=== PATIENT | male | born 1945 | race Caucasian/White ===

== ENCOUNTER 2025-08-24 06:53 | Day surgery (SDC) | payer MEDICARE, BC ==
[2025-08-23 10:39] LABS: MEAN PLATELET VOLUME 9.0 FL (7.4-10.4); RED CELL DISTRIBUTION WIDTH 14.8 % (11.5-14.5)
[2025-08-23 10:55] LABS: CREATININE 0.98 MG/DL (0.60-1.10); INR 1.3 INR; TOTAL CARBON DIOXIDE 31.7 MMOL/L (24-32); eGFR 73 ML/MIN
[2025-08-24] VITALS (8 sets, daily range): BP systolic 131–151; BP diastolic 62–80; PULSE 59–68; RESP 12–15; TEMP 97.8; O2SAT 98–100
[~2025-08-24] VITALS: Ht 170.2 cm; Wt 74.9 kg
[~2025-08-24 06:53] MED LIST: AMIO200T76 PO; APIX5TAB3 PO; ASPI-611 PO; ATOR10TA70 PO; FURO40TA4 PO; LISI1TAB51 PO; MELO-102 PO; METO25TA6 PO
[2025-08-24] MEDS ORDERED: MIDAZolam 1mg/ml 10ml vial IV ONE (07:15)
[2025-08-24] MEDS ORDERED: normal saline 1000ml 1,000 ML IV SCH (07:15)
[2025-08-24] MEDS ORDERED: morphine 10mg/ml inj. IV ONE (07:15)
[2025-08-24] MEDS ORDERED: amiodarone 150mg/dext, iso-os 100 ML IV ONE (07:15)
[2025-08-24] MEDS ORDERED: atropine 0.1mg/ml 10ml syringe IV ONE (07:15)
--- NOTE | 2025-08-24 07:17 | ELECTROCARDIOGRAPH REPORT ---
[facility] Test Date: 2025-08-24 Test Time: 07:15:08 Pat Name: WALLACE MEDLEY Department: [facility] Patient ID: [facility]-[id number] Room: Gender: M Field Marketing Team Leader: SAMANTHA : 1945 Requested By: SUSAN RAYMUNDO Order Number: [id number] Reading MD: Dr. MARYJANE Raymundo Measurements Intervals [place] Rate: 62 P: 0 [place]: 0 QRS: 98 QRSD: 100 T: 52 QT: 507 QTc: 515 Interpretive Statements Atrial fibrillation Right axis deviation Prolonged QT interval Electronically Signed On 08-24-2025 17:51:[address] MARYJANE Raymundo Please click the below link to view image of tracing.
[2025-08-24] MEDS ORDERED: midazolam 1 mg/ML 2ml injection ONE (09:04)
[2025-08-24] MEDS ORDERED: fentaNYL/PF 50MCG/1 ML 2ML syringe ONE (09:05)
[2025-08-24] MEDS ORDERED: atropine 0.1mg/ml 10ml syringe ONE (09:05)
--- NOTE | 2025-08-24 10:00 | CARDIOLOGY REPORT ---
DATE OF SERVICE: 08/24/2025 DICTATING PHYSICIAN: MARYJANE Funk MD ELECTRICAL CARDIOVERSION DATE OF PROCEDURE: 08/24/2025 PRIMARY SURGEON: Dr. Ishan Stevens. SYSTEMS TRAINER: MARYJANE Funk MD INDICATION: The patient is an 79-year-old male with a history of hypertension, hyperlipidemia, sick sinus syndrome with PAF. The patient had a history of CAD status post CABG x 2 back in 07/[address] Stevie roth. At that time, he got SVG to LAD and SVG to diagonal 1/ramus. The patient was noted to be in atrial fibrillation on 06/19, started on amiodarone and Eliquis, and he is here for elective cardioversion. Risks, benefits, and alternative options discussed. Informed consent obtained. DESCRIPTION OF PROCEDURE: Anterior and posterior pads were used. Using biphasic electric energy, 200 Joules x 1, converted to normal sinus rhythm, and remained in normal sinus rhythm. IMPRESSION: An 79-year-old with persistent A-fib, converted to normal sinus rhythm. RECOMMENDATIONS: * Amiodarone decreased to 200 mg once a day, Eliquis 5 mg p.o. b.i.d., and metoprolol. * The patient was again counseled on diet, weight loss, and exercise program. MARYJANE Funk MD TID: [id number] RECEIPT: [id number] GARRET/CHRIS cc: Dr. Stevens [facility]
--- NOTE | 2025-08-24 10:19 | ELECTROCARDIOGRAPH REPORT ---
[facility] Test Date: 2025-08-24 Test Time: 10:17:53 Pat Name: WALLACE MEDLEY Department: [facility] Patient ID: [facility]-[id number] Room: Gender: M Sales Service Representative: SAMANTHA : 1945 Requested By: SUSAN RAYMUNDO Order Number: [id number] Reading MD: Dr. MARYJANE Raymundo Measurements Intervals [place] Rate: 62 P: 30 NE: 228 QRS: 100 QRSD: 101 T: 25 QT: 501 QTc: 509 Interpretive Statements Sinus rhythm Prolonged NE interval Right axis deviation Prolonged QT interval Baseline wander in lead(s) V6 Electronically Signed On 08-25-2025 13:09:[address] MARYJANE Raymundo Please click the below link to view image of tracing.
[2025-09-01] MEDS ORDERED: FURO-149 PO (15:48)
[2025-09-03] MEDS ORDERED: AMIO200T76 PO (11:39)
[2025-09-03] MEDS ORDERED: FURO40TA4 PO (11:39)
== END 2025-08-24 10:50 | disposition home or self-care (01) ==
LOC: SSTAY O 06:53
PROVIDERS: ATTEND Internal Medicine Cardiovascular Disease
DX: I48.0 Paroxysmal atrial fibrillation (principal); I25.10 Atherosclerotic heart disease of native coronary artery without angina pectoris; E78.5 Hyperlipidemia, unspecified; I10 Essential (primary) hypertension; I34.0 Nonrheumatic mitral (valve) insufficiency; R00.1 Bradycardia, unspecified; I35.2 Nonrheumatic aortic (valve) stenosis with insufficiency; J91.8 Pleural effusion in other conditions classified elsewhere; I25.2 Old myocardial infarction; Z98.890 Other specified postprocedural states; Z79.82 Long term (current) use of aspirin; Z79.899 Other long term (current) drug therapy; Z95.1 Presence of aortocoronary bypass graft; Z80.9 Family history of malignant neoplasm, unspecified; Z87.891 Personal history of nicotine dependence; Z86.2 Personal history of diseases of the blood and blood-forming organs and certain disorders involving the immune mechanism
CPT/HCPCS: 36415; 80048; 85025; 85610; 92960; 93005; 99152; J2250; J3010; J7030; Z7610; J0461